=== PATIENT | male | born 1995 | race Caucasian/White ===

== ENCOUNTER 2024-12-13 13:42 | Emergency (ER) | payer MEDICAID ==
[~2024-12-13] VITALS: Ht 172.7 cm; Wt 68.3 kg
[2024-12-13 14:04] VITALS: BP 130/98; PULSE 114; RESP 16; O2SAT 94
[2024-12-13 14:34] VITALS: TEMP 98.1
== END 2024-12-13 14:35 | disposition home or self-care (01) ==
LOC: ER 13:44
DX: F11.20 Opioid dependence, uncomplicated (principal)
CPT/HCPCS: 99281